=== PATIENT | male | born 1955 | race Caucasian/White ===

== ENCOUNTER → 2018-05-17 | Outpatient (CLI) | payer OTHER ==
[~2018-05-17] MED LIST: ALLO100T70 PO; CEPH500C24 PO; LAN30PT PO
--- NOTE | 2018-05-17 10:59 | RT STRESS TEST REPORT ---
[place] [facility] [place] NAME: DEBORAH PINEDA : [id number] MR: [id number] V: [id number] EXAM DATE: ORDERING PHYSICIAN: STEVO RODRIGUEZ TECHNOLOGIST: Dipak Acquisition Time: 2018-05-17 08:49:56 Total Exercise Time: 00:05:45 Test Indications: chest pain, hypertension Medications: BLOOD PRESSURES Protocol: BRUCE2 Max HR: 136 BPM 87% of Pred: 156 BPM Max BP: 220/095 mmHG Max Work Load: 7.0 METS B.P. significantly elevated during exercise No ischemic changes during the test Impression No EKG changes to suggest ischemia and stress test is negative Excessive changes in B.P. with exercise Confirmed by SRINIVAS NEWMAN ([id number]) on 05/17/2018 10:58:37 AM Referred By: Overread By: SRINIVAS NEWMAN
== END ==
LOC: RESP 06:32
PROVIDERS: ATTEND Family Medicine
DX: R07.89 Other chest pain (principal); I10 Essential (primary) hypertension
CPT/HCPCS: 93017